=== PATIENT | male | born 1970 | race Caucasian/White ===

== ENCOUNTER 2018-01-21 22:47 | Inpatient (IN) ==
[2018-01-22] MEDS ORDERED: D5% in 0.45% NACL 1,000 ML IVC PRN (01:34)
[2018-01-22] MEDS ORDERED: *HR* Dextrose 50 % in Water (Syg) 50 ML SYRINGE IVP PRN (01:34)
[2018-01-22] MEDS ORDERED: Insulin Human Regular 100 UNIT in 0.9 % Sodium Chloride 100 ML IVC SCH (01:45)
[2018-01-22] MEDS ORDERED: 0.9 % Sodium Chloride w KCl 20 MEQ/1,000 ML MLS IVC PRN (01:45)
[2018-01-22] MEDS ORDERED: 0.45 % Sodium Chloride w/KCl 20 MEQ/1,000 ML MLS IVC PRN (01:45)
[2018-01-22] MEDS ORDERED: 0.9 % Sodium Chloride 1,000 ML IVC PRN (01:45)
[2018-01-22] MEDS: 0.9 % Sodium Chloride 1,000 ML IVC SCH ×2 (02:03→02:52)
[2018-01-22 02:37] LABS: Magnesium 2.3 mg/dL (1.6-2.6); Phosphorous 3.6 mg/dL (2.7-4.5)
--- NOTE | 2018-01-22 02:37 | Internal Med History&Physical ---
Date of Encounter: 01/22/18 Time of Encounter: 02:37 Internal Medicine - H&P: HPI Chief complaint: DKA Admitted From: Hospital to Hospital Transfer Plans for Post Hospital Care: Home History of present illness: Mr. Johnson is a 47 year old male with past medical history of type I diabetes, hypertension. Patient arrived to [facility] emergency department earlier today with chief complaint of nausea that started around 7 o'clock this morning. He states that during this period, his sugars were running 300s-400s. He reports 4 episodes of diarrhea and vomited once in the early afternoon. He also admits to weakness, palpitations, shortness of breath, dry mouth. He denies any recent sick contacts. He denies cough, burning with urination, dizziness, fever, chills, chest pain. He does report intermittent shortness of breath. He denies any recent surgeries or procedures, and he reports that he has not missed any doses of his insulin. He denies any cold symptoms. Upon arrival to [facility] emergency department, vitals were as follows: temperature 97.5, heart rate 116, respirations 22, blood pressure 104/57, oxygen saturation 97% on room air. CBC at [facility] was unremarkable. Arterial blood gas showed pH of 7.11, CO2 14, O2 147, HCO3 5. BMP showed sodium 131, potassium 5.1, chloride 93, HCO3 7, creatinine 1.73 (baseline Creatinine normal). Blood glucose was 350, and at one point was in the 400s. Lactic acid was 1.3, magnesium 2.2, initial troponin was negative. beta hydroxybutyric acid >2. Patient had anionic gap of 31 Patient received 2 L bolus at [facility] ED and was initiated on insulin drip. Past Med Surg Social Fam HX - Past Medical History Medical history: diabetes, hyperlipidemia, hypertension Additional medical history: Bilateral carpal tunnel. Psychiatric history: no psych history - Past Surgical History Surgical History: appendectomy Additional surgical history: Abd surgery. Lt eye surgery for retinal detachment. - Social History Smoking Status: Never smoker Smokeless Tobacco Status: No Alcohol use: occasionally Drug use: none Internal Medicine - H&P: Meds Gabapentin [Neurontin] 300 mg PO BID 10/15/15 [History] Insulin ASPART [NovoLOG] 1 unit SQ ACHS PRN MDD per sliding scale 10/15/15 [History] Lisinopril-HCTZ 20-12.5 [Prinzide 20-12.5] 1 tab PO BID 10/15/15 [History] Atorvastatin Calcium [Lipitor] 20 mg PO DAILY 10/16/15 [History] Insulin Glargine,Hum.rec.anlog [Basaglar Jayneikpen U-100] 34 unit SQ HS 01/21/18 [History] Allergy/AdvReac Type Severity Reaction Status Date / Time Penicillins [PCN] Allergy Anaphylaxis Verified 11/06/15 02:15 All Systems PM: A 10-system review of systems was performed and is negative for pertinent findings except as documented above in the HPI. - Constitutional Constitutional: as per HPI - EENT Eyes: as per HPI Ears: as per HPI Nose, mouth and throat: as per HPI - Breasts Breasts: as per HPI - Cardiovascular Cardiovascular ROS IM: as per HPI - Respiratory Respiratory: as per HPI - Gastrointestinal Gastrointestinal: as per HPI - Genitourinary Genitourinary ROS male: as per HPI - Musculoskeletal Musculoskeletal ROS IM: as per HPI - Integumentary Integumentary IM: as per HPI - Neurological Neurological ROS: as per HPI - Psychiatric Psychiatric: as per HPI - Endocrine Endocrine IM: as per HPI - Hematologic/Lymphatic Hematologic/Lymphatic: as per HPI - Allergic/Immunologic Allergic/Immunologic: as per HPI - Constitutional Vitals: Temp Pulse Resp BP Pulse Ox 98.6 F 136 18 143/76 100 01/22/18 01:17 01/22/18 01:17 01/22/18 01:17 01/22/18 01:17 01/22/18 01:17 General appearance: Present: A&O X 3, pleasant, no acute distress, answers questions appropriately Exam: alert and oriented x3, pleasant, no acute distress. - Head Head exam: Present: atraumatic, normocephalic - ENT ENT exam: Present: mucous membranes dry, mucous membranes moist - Respiratory Respiratory exam: Present: rhonchi (Predominantly present on the right side). Absent: respiratory distress, wheezes, tachypnea - Cardiovascular Cardiovascular exam: Present: +S1, +S2, tachycardia - GI/Abdominal GI/Abdominal exam: Present: distended, normal bowel sounds, soft. Absent: tenderness Additional comments: Abdominal scars present from prior surgery. Ventral abdominal hernia present. - Extremities Exam Extremities exam: Absent: cyanotic, pedal edema - Neurological Exam Neurological exam: Present: alert, oriented X3, no focal deficits - Psychiatric Psychiatric exam: Present: normal affect, normal mood - Skin Skin exam: Present: dry, intact. Absent: mottled, pallor - Assessment and plan (1) DKA (diabetic ketoacidoses) Current Visit: No Status: Acute Assessment and plan: 47-year-old male with history of type I diabetes presents to the [facility] emergency department earlier tonight with chief complaint of nausea, vomiting, diarrhea, lethargy, weakness, palpitations. At [facility] ED, he was noted to be in DKA. Patient denies any recent sick contacts, cough, or any other upper respiratory symptoms. He denies any chest pain or chest tightness. At [facility], he was noted to have blood glucose in the 300s, tachycardia, tachypnea. ABG showed pH 7.11, serum bicarbonate 7. Anion gap: 31. serum positive for ketones. initial troponin at [place] ED negative. 2 view chest x-ray ordered, showing no evidence of focal consolidation. Etiology of DKA unclear, but suspect likely secondary to viral gastroenteritis, as patient did state that he had episodes of nausea and vomiting earlier this evening. Plan: NPO s/p 3L total fluid boluses insulin gtt with maintenance fluids per dka protocol. serum bmp and venous blood gas q4H Qualifiers: Diabetes mellitus type: type 1 Diabetes mellitus complication detail: without coma Qualified Code(s): E10.10 - Type 1 diabetes mellitus with ketoacidosis without coma (2) Dehydration Current Visit: No Status: Acute Assessment and plan: Likely secondary to DKA. Plan as above (3) RIAN (acute kidney injury) Current Visit: Yes Status: Acute Assessment and plan: Likely secondary to dehydration in setting of DKA. Plan: fluid boluses given per DKA protocol as above avoid nephrotoxic agents follow renal protective strategy continue to monitor kidney function (4) DVT prophylaxis Current Visit: Yes Status: Acute Assessment and plan: Heparin SQ - Time Spent With Patient Total time spent is greater than 50% in coordination of care (as documented) at patient's floor/unit and/or counseling patient:
[2018-01-22 02:46] LABS: Estimated Average Glucose 235 mg/dl; Hemoglobin A1C 9.8 %
--- NOTE | 2018-01-22 02:48 | Event Note ---
Date of Encounter: 01/22/18 Time of Encounter: 02:43 Patient was seen and examined. I agree with the H&P as written by the resident physician. Patient with history of insulin-dependent diabetes mellitus, hypertension who was transferred to us from [facility] where he was found to be in DKA with glucose of first to the high 300s to low 400s. Had elevated anion gap with bicarbonates of 7 on the CMP. ABG showed a pH of 7.1 and a bicarbonate of 14. Also noted to be in history of present illness. Was given a couple of liters boluses in the ED there and started on insulin drip prior to transfer here. His been hemodynamically stable. Says his sugars have been running high for the last couple days. He is compliant with his insulin. Does not think that he has been sick recently. GEN: NAD CVS: RRR. S1, S2, No m/r/g RESP: CTAB ABD: Soft, NT, ND, +BS EXT: No edema. 2+ DP. No rashes NEURO: Nonfocal Admitted to 2 N. Initiate DKA insulin and fluids protocol Stat labs now and Q4 hours electrolytes Q1 hour Accu-Cheks NPO for now as he is nauseous somewhat Avoid nephrotoxins Start a diet once bicarbonate is more than 16 and anion gap has closed
[2018-01-22] MEDS: D5% in 0.45% NACL w KCl 20 MEQ/1,000 ML MLS IVC PRN ×3 (02:50→11:41)
[2018-01-22] MEDS ORDERED: OXYCODONE Oral CONC 10 MG/0.5 ML ORAL.SYG SL PRN (03:03)
[2018-01-22] MEDS ORDERED: Naloxone 0.4 MG/ML INJ IVP PRN (03:03)
[2018-01-22] MEDS ORDERED: Ondansetron 4 MG/2 ML VIAL IVP PRN (03:06)
[2018-01-22 03:23] LABS: Calcium 8.5 mg/dL (8.6-10.3); Potassium 4.6 mEq/L (3.5-5.1)
[2018-01-22 03:29] LABS: Basophils % 0.3 %; Hematocrit 43.4 % (37.5-50.1); Hemoglobin 14.4 g/dL (12.9-16.9); Immature Granulocytes % 0.8 % (0-4); Lymphocytes # 1.1 K/mcL (0.6-4.6); Lymphocytes % 10.4 %; Mean Corpuscular HGB Conc 33.2 g/dL (31.6-35.5); Mean Corpuscular Hemoglobin 31.2 pg (28.0-33.3); Mean Corpuscular Volume 93.9 fL (83.0-100.0); Mean Platelet Volume 9.4 fL (9.4-12.4); Monocytes # 0.7 K/mcL (0.0-1.3); Monocytes % 6.2 %; Platelet Count 324 K/mcL (140-400); Red Blood Count 4.62 M/mcL (4.19-5.50); Red Cell Distribution Width 11.9 % (11.5-14.5); Segmented Neutrophils % 82.3 %
[2018-01-22 03:43] LABS: VBG HCO3 9 mEq/L (21-27); VBG PCO2 27 mmHg (41-51); VBG PH 7.12 pH Units (7.32-7.42); VBG PO2 47 mmHg (25-50)
[2018-01-22 03:53] LABS: Troponin I < 0.03 ng/mL (< 0.04)
[2018-01-22] MEDS: Insulin Human Regular 100 UNIT in 0.9 % Sodium Chloride 100 ML IVC SCH ×2 (04:02→10:12)
[2018-01-22 04:24] LABS: BUN/Creatinine Ratio 12 (6-26); Blood Urea Nitrogen 17 mg/dL (6-20); Calcium 8.4 mg/dL (8.6-10.3); Carbon Dioxide 7 mEq/L (23-29); Chloride 106 mEq/L (98-107); Glucose 186 mg/dL (70-105); Osmolality,Calculated 292 (280-300); Potassium 4.3 mEq/L (3.5-5.1); Sodium 138 mEq/L (136-145); eGFR For Non-African Americans 53 (> 60)
[2018-01-22] MEDS: *HR* Heparin 5,000 UNIT/ML VIAL SQ SCH ×3 (05:29→19:48)
[2018-01-22 06:51] LABS: VBG HCO3 11 mEq/L (21-27); VBG PCO2 27 mmHg (41-51); VBG PH 7.23 pH Units (7.32-7.42); VBG PO2 185 mmHg (25-50)
[2018-01-22 06:57] LABS: BUN/Creatinine Ratio 13 (6-26); Blood Urea Nitrogen 16 mg/dL (6-20); Calcium 8.3 mg/dL (8.6-10.3); Carbon Dioxide 11 mEq/L (23-29); Chloride 110 mEq/L (98-107); Glucose 174 mg/dL (70-105); Osmolality,Calculated 291 (280-300); Potassium 3.6 mEq/L (3.5-5.1); Sodium 138 mEq/L (136-145); eGFR For Non-African Americans > 60 (> 60)
[2018-01-22] MEDS: Gabapentin 300 MG CAPSULE PO SCH ×2 (09:08→19:48)
[2018-01-22 10:31] LABS: VBG HCO3 18 mEq/L (21-27); VBG PCO2 39 mmHg (41-51); VBG PH 7.27 pH Units (7.32-7.42); VBG PO2 73 mmHg (25-50)
[2018-01-22 10:43] LABS: BUN/Creatinine Ratio 11 (6-26); Blood Urea Nitrogen 14 mg/dL (6-20); Calcium 8.2 mg/dL (8.6-10.3); Carbon Dioxide 17 mEq/L (23-29); Chloride 109 mEq/L (98-107); Glucose 127 mg/dL (70-105); Osmolality,Calculated 288 (280-300); Potassium 3.6 mEq/L (3.5-5.1); Sodium 138 mEq/L (136-145); eGFR For Non-African Americans > 60 (> 60)
--- NOTE | 2018-01-22 13:35 | Event Note ---
Date of Encounter: 01/22/18 Time of Encounter: 14:00 - AG closed - Will switch patient to subcuaneous insulin with 2 hr overlap with insulin drip - f/u BMP - Start patient on diet.
[2018-01-22] MEDS ORDERED: Dextrose Gel 15 GM/37.5 ML TUBE PO PRN ×2 (13:46)
[2018-01-22] MEDS ORDERED: D5% in Water 1,000 ML IVC PRN (13:46)
[2018-01-22] MEDS ORDERED: Insulin DETEMIR 100 UNIT/ML X5UNITS SQ ONE (13:47)
[2018-01-22 14:33] LABS: BUN/Creatinine Ratio 11 (6-26); Blood Urea Nitrogen 13 mg/dL (6-20); Calcium 8.2 mg/dL (8.6-10.3); Carbon Dioxide 18 mEq/L (23-29); Chloride 110 mEq/L (98-107); Glucose 122 mg/dL (70-105); Osmolality,Calculated 287 (280-300); Potassium 3.5 mEq/L (3.5-5.1); Sodium 138 mEq/L (136-145); eGFR For Non-African Americans > 60 (> 60)
[2018-01-22 14:39] LABS: VBG HCO3 19 mEq/L (21-27); VBG PCO2 42 mmHg (41-51); VBG PH 7.27 pH Units (7.32-7.42); VBG PO2 93 mmHg (25-50)
[2018-01-22] MEDS: Insulin LISPRO 300 UNITS/3 ML VIAL SQ SCH (16:33)
[2018-01-22] MEDS ORDERED: Insulin LISPRO 300 UNITS/3 ML VIAL SQ SCH (21:00)
[2018-01-22] MEDS ORDERED: Insulin DETEMIR 100 UNIT/ML X5UNITS SQ SCH (21:00)
[2018-01-23 05:12] LABS: BUN/Creatinine Ratio 10 (6-26); Blood Urea Nitrogen 10 mg/dL (6-20); Calcium 8.8 mg/dL (8.6-10.3); Carbon Dioxide 25 mEq/L (23-29); Chloride 109 mEq/L (98-107); Glucose 79 mg/dL (70-105); Osmolality,Calculated 292 (280-300); Sodium 142 mEq/L (136-145); eGFR For Non-African Americans > 60 (> 60)
[2018-01-23] MEDS: *HR* Heparin 5,000 UNIT/ML VIAL SQ SCH (06:32)
[2018-01-23] MEDS: Insulin LISPRO 300 UNITS/3 ML VIAL SQ SCH ×2 (07:50→11:49)
[2018-01-23] MEDS: Gabapentin 300 MG CAPSULE PO SCH (08:07)
[2018-01-23 11:17] VITALS: BP 144/97
--- NOTE | 2018-01-23 11:53 | Discharge Summary ---
- NOTES TO OUTPATIENT PROVIDER Notes to Outpatient Provider: Patient has to resume home insulin regimen Date of Encounter: 01/23/18 Time of Encounter: 11:51 - Discharge Diagnosis (1) RIAN (acute kidney injury) Priority: Primary Status: Acute (2) DKA (diabetic ketoacidoses) Priority: Primary Status: Acute Qualifiers: Diabetes mellitus type: type 1 Diabetes mellitus complication detail: without coma Qualified Code(s): E10.10 - Type 1 diabetes mellitus with ketoacidosis without coma Hospital course: Mr. Johnson is a 47 year old male with past medical history of diabetes, hypertension who came in with complain of nausea vomiting was found to have DKA with elevated anion gap and bicarbonate of 7. Patient was started on insulin drip with DKA protocol and IV fluids. Patient also had a KI on presentation with creatinine of 1.44. Patient's gap closed with IV insulin were next 1.5 days. Patient was started on subcutaneous insulin and monitor closely. Patient tolerated diet well is asymptomatic and wants to go home. We will discharge patient to home and resume his home medications including insulin. Patient affirms he has insulin at home. Discharge discussed with: patient, family, nurse - Time Spent with Patient Total time spent providing and/or coordinating discharge services: Greater than 30 minutes (39) - Discharge Medications Home Medications: Gabapentin [Neurontin] 300 mg PO BID 10/15/15 [History] Insulin ASPART [NovoLOG] 0 - 15 unit SQ ACHS PRN MDD per sliding scale 10/15/15 [History] Lisinopril-HCTZ 20-12.5 [Prinzide 20-12.5] 1 tab PO DAILY 10/15/15 [History] Atorvastatin Calcium [Lipitor] 20 mg PO DAILY 10/16/15 [History] Insulin Glargine,Hum.rec.anlog [Basaglar Kwikpen U-100] 34 unit SQ HS 01/21/18 [History] Metoprolol Succinate [Toprol Xl] 100 mg PO DAILY 01/22/18 [History] Allergies/Adverse Reactions: Allergy/AdvReac Type Severity Reaction Status Date / Time Penicillins [PCN] Allergy Anaphylaxis Verified 01/22/18 09:29 Date of admission: 01/22/18 06:31 Consults: 01/22/18 01:34 Consult for Pharmacy Education [CONS] Routine Reason for Consult: dKA Call Completed: No Discharging clinician: Shobha Clayton - Constitutional Vitals: Temp Pulse Resp BP Pulse Ox 98.1 F 83 18 144/97 96 01/23/18 11:09 01/23/18 11:09 01/23/18 11:09 01/23/18 11:09 01/23/18 11:09 General appearance: Present: A&O X 3, pleasant, no acute distress, answers questions appropriately Exam: General: In no acute distress. Conversant. Obese. Respiratory exam: CTAB. no accessory muscle use, rales, rhonchi, wheezes Cardiovascular exam: RRR, +S1, +S2. no murmur, gallop, rubs. GI/Abdominal exam: Non-tender, Non-distended, normal bowel sounds, soft, no peritoneal signs. Extremities exam: full ROM, no pedal edema, warm, pulses palpable in b/l lower extremities. no calf tenderness Neurological exam: CN II-XII intact, AO X3, no focal deficits. Skin exam: No skin rash, ulcer, purpura or ecchymosis. - Patient Status Disposition: Home, Self-Care Condition: Fair - Discharge Instructions Follow Up With: Codi Sumner MD [Partnered Physician] - 01/27/18 7:00 pm Geovanny Paz MD [Partnered Physician] - 02/02/18 7:00 am Forms: Inpatient Work/School Release - Diet and Activity Activity: resume usual activities as tolerated
== END 2018-01-23 14:11 | disposition home or self-care (01) | DRG 420 ==
LOC: 2NNU → SUATTDRO 01-22 06:31
PROVIDERS: ADMIT Internal Medicine; ATTEND Internal Medicine

== ENCOUNTER 2020-04-05 21:56 | Inpatient (IN) ==
[2020-04-05] MEDS ORDERED: *HR* Dextrose 50 % in Water (Vial) 50 ML VIAL IVP PRN (23:49)
[2020-04-05] MEDS ORDERED: D5% in 0.45% NACL 1,000 ML IVC PRN (23:49)
[2020-04-05] MEDS ORDERED: Insulin LISPRO 300 UNITS/3 ML VIAL SUBQ PRN (23:49)
[2020-04-05] MEDS ORDERED: Ketorolac 15 MG/ML VIAL IVP PRN (23:56)
[2020-04-05] MEDS ORDERED: Naloxone 0.4 MG/ML INJ IVP PRN (23:56)
[2020-04-06] MEDS: Insulin Human Regular 100 UNIT in 0.9 % Sodium Chloride 100 ML IVC SCH ×6 (00:15→16:06)
[2020-04-06 00:57] LABS: VBG HCO3 4 mEq/L (21-27); VBG PCO2 29 mmHg (41-51); VBG PH 6.79 pH Units (7.32-7.42); VBG PO2 70 mmHg (25-50)
[2020-04-06 01:05] LABS: Calcium 9.2 mg/dL (8.6-10.3); Potassium 5.6 mEq/L (3.5-5.1)
[2020-04-06 02:26] LABS: VBG HCO3 5 mEq/L (21-27); VBG PCO2 27 mmHg (41-51); VBG PH 6.88 pH Units (7.32-7.42); VBG PO2 97 mmHg (25-50)
[2020-04-06] MEDS ORDERED: 0.9 % Sodium Chloride 1,000 ML IV ONE (02:34)
[2020-04-06] MEDS ORDERED: 0.9 % Sodium Chloride 1,000 ML ONE (02:34)
[2020-04-06 02:52] LABS: BUN/Creatinine Ratio 12 (6-26); Blood Urea Nitrogen 19 mg/dL (6-20); Calcium 8.9 mg/dL (8.6-10.3); Carbon Dioxide < 4 mEq/L (23-29); Chloride 105 mEq/L (98-107); Glucose 507 mg/dL (70-105); Osmolality,Calculated 315 (280-300); Potassium 5.5 mEq/L (3.5-5.1); Sodium 140 mEq/L (136-145); eGFR For African Americans 56 (> 60); eGFR For Non-African Americans 46 (> 60)
[2020-04-06] MEDS ORDERED: *HR* Metoprolol 5 MG/5 ML VIAL IVP ONE (02:54)
[2020-04-06 04:35] LABS: VBG HCO3 6 mEq/L (21-27); VBG PCO2 22 mmHg (41-51); VBG PH 7.04 pH Units (7.32-7.42); VBG PO2 101 mmHg (25-50)
[2020-04-06 05:04] LABS: Basophils % 0.4 %; Eosinophils # 0.1 K/mcL (0.0-0.6); Eosinophils % 1.2 %; Hematocrit 45.2 % (37.5-50.1); Hemoglobin 14.2 g/dL (12.9-16.9); Immature Granulocytes % 2.9 % (0-4); Lymphocytes # 0.7 K/mcL (0.6-4.6); Mean Corpuscular HGB Conc 31.4 g/dL (31.6-35.5); Mean Corpuscular Hemoglobin 29.3 pg (28.0-33.3); Mean Corpuscular Volume 93.4 fL (83.0-100.0); Mean Platelet Volume 9.7 fL (9.4-12.4); Monocytes # 0.9 K/mcL (0.0-1.3); Monocytes % 8.5 %; Neutrophils # 8.4 K/mcL (1.6-8.9); Platelet Count 402 K/mcL (140-400); Red Blood Count 4.84 M/mcL (4.19-5.50); Red Cell Distribution Width 12.2 % (11.5-14.5); White Blood Count 10.5 K/mcL (4.3-11.1)
[2020-04-06 05:26] LABS: BUN/Creatinine Ratio 13 (6-26); Blood Urea Nitrogen 19 mg/dL (6-20); Calcium 9.1 mg/dL (8.6-10.3); Carbon Dioxide 5 mEq/L (23-29); Chloride 113 mEq/L (98-107); Glucose 354 mg/dL (70-105); Magnesium 2.2 mg/dL (1.6-2.6); Osmolality,Calculated 314 (280-300); Potassium 3.8 mEq/L (3.5-5.1); Sodium 144 mEq/L (136-145); eGFR For African Americans > 60 (> 60); eGFR For Non-African Americans 53 (> 60)
[2020-04-06 05:39] LABS: Estimated Average Glucose 220 mg/dl; Hemoglobin A1C 9.3 %
[2020-04-06] MEDS ORDERED: D5% in 0.45% NACL 1,000 ML IVC PRN (05:49)
[2020-04-06] MEDS: D5% in 0.45% NACL w KCl 20 MEQ/1,000 ML MLS IVC PRN ×3 (06:07→14:36)
[2020-04-06] MEDS ORDERED: *HR* Metoprolol 5 MG/5 ML VIAL IVP PRN (06:08)
[2020-04-06 06:38] LABS: VBG HCO3 11 mEq/L (21-27); VBG PCO2 26 mmHg (41-51); VBG PH 7.24 pH Units (7.32-7.42); VBG PO2 97 mmHg (25-50)
[2020-04-06 06:57] LABS: BUN/Creatinine Ratio 14 (6-26); Blood Urea Nitrogen 18 mg/dL (6-20); Carbon Dioxide 10 mEq/L (23-29); Chloride 117 mEq/L (98-107); Glucose 236 mg/dL (70-105); Osmolality,Calculated 312 (280-300); Phosphorous < 1.0 mg/dL (2.7-4.5); Potassium 3.3 mEq/L (3.5-5.1); Sodium 146 mEq/L (136-145); eGFR For African Americans > 60 (> 60); eGFR For Non-African Americans 58 (> 60)
[2020-04-06] MEDS: *HR* Heparin 5,000 UNIT/ML VIAL SQ SCH ×3 (07:26→21:29)
[2020-04-06] MEDS ORDERED: Insulin Human Regular 250 UNIT in 0.9 % Sodium Chloride 250 ML IVC SCH (08:00)
[2020-04-06 08:10] LABS: Adenovirus Not Detected (Not Detect); Bordetella Pertussis Not Detected (Not Detect); Chlamydophila pneumoniae Not Detected (Not Detect); Coronavirus 229E Not Detected (Not Detect); Coronavirus HKU1 Not Detected (Not Detect); Coronavirus NL63 Not Detected (Not Detect); Coronavirus OC43 Not Detected (Not Detect); Human Metapneumovirus Not Detected (Not Detect); Human Rhinovirus/Enterovirus Not Detected (Not Detect); Influenza A Subtype 2009 H1 Not Detected (Not Detect); Influenza B Not Detected (Not Detect); Mycoplasma pneumoniae Not Detected (Not Detect); Parainfluenza Virus 1 Not Detected (Not Detect); Parainfluenza Virus 2 Not Detected (Not Detect); Parainfluenza Virus 3 Not Detected (Not Detect); Parainfluenza Virus 4 Not Detected (Not Detect); Respiratory Syncytial Virus Not Detected (Not Detect)
[2020-04-06 08:12] LABS: SARS-CoV-2 DETECTED (Not Detect)
[2020-04-06 08:44] LABS: VBG HCO3 14 mEq/L (21-27); VBG PCO2 27 mmHg (41-51); VBG PH 7.31 pH Units (7.32-7.42); VBG PO2 228 mmHg (25-50)
[2020-04-06 08:58] LABS: BUN/Creatinine Ratio 14 (6-26); Blood Urea Nitrogen 17 mg/dL (6-20); Carbon Dioxide 13 mEq/L (23-29); Chloride 119 mEq/L (98-107); Glucose 204 mg/dL (70-105); Magnesium 2.2 mg/dL (1.6-2.6); Osmolality,Calculated 307 (280-300); Potassium 3.3 mEq/L (3.5-5.1); Sodium 145 mEq/L (136-145); eGFR For African Americans > 60 (> 60); eGFR For Non-African Americans > 60 (> 60)
[2020-04-06] MEDS ORDERED: D5% in 0.45% NACL w KCl 20 MEQ/1,000 ML MLS IVC PRN (10:26)
[2020-04-06 10:37] LABS: VBG HCO3 16 mEq/L (21-27); VBG PCO2 31 mmHg (41-51); VBG PH 7.32 pH Units (7.32-7.42); VBG PO2 191 mmHg (25-50)
[2020-04-06 10:48] LABS: BUN/Creatinine Ratio 16 (6-26); Blood Urea Nitrogen 17 mg/dL (6-20); Calcium 8.9 mg/dL (8.6-10.3); Carbon Dioxide 13 mEq/L (23-29); Chloride 118 mEq/L (98-107); Glucose 240 mg/dL (70-105); Magnesium 2.2 mg/dL (1.6-2.6); Osmolality,Calculated 309 (280-300); Potassium 3.7 mEq/L (3.5-5.1); Sodium 145 mEq/L (136-145); eGFR For African Americans > 60 (> 60); eGFR For Non-African Americans > 60 (> 60)
[2020-04-06] MEDS ORDERED: Potassium Phosphate 44 MEQ in 0.9 % Sodium Chloride 250 ML IVPB ONE ×2 (10:56→18:32)
[2020-04-06 13:25] LABS: VBG HCO3 19 mEq/L (21-27); VBG PCO2 33 mmHg (41-51); VBG PH 7.35 pH Units (7.32-7.42); VBG PO2 187 mmHg (25-50)
[2020-04-06 13:44] LABS: BUN/Creatinine Ratio 16 (6-26); Blood Urea Nitrogen 16 mg/dL (6-20); Carbon Dioxide 17 mEq/L (23-29); Chloride 121 mEq/L (98-107); Glucose 209 mg/dL (70-105); Magnesium 2.1 mg/dL (1.6-2.6); Osmolality,Calculated 309 (280-300); Potassium 3.4 mEq/L (3.5-5.1); Sodium 146 mEq/L (136-145); eGFR For African Americans > 60 (> 60); eGFR For Non-African Americans > 60 (> 60)
[2020-04-06 16:05] LABS: VBG HCO3 19 mEq/L (21-27); VBG PCO2 33 mmHg (41-51); VBG PH 7.37 pH Units (7.32-7.42); VBG PO2 219 mmHg (25-50)
[2020-04-06] MEDS: 0.45 % Sodium Chloride w/KCl 20 MEQ/1,000 ML MLS IVC SCH (16:07)
[2020-04-06 16:23] LABS: BUN/Creatinine Ratio 16 (6-26); Blood Urea Nitrogen 15 mg/dL (6-20); Carbon Dioxide 18 mEq/L (23-29); Chloride 123 mEq/L (98-107); Glucose 139 mg/dL (70-105); Magnesium 2.1 mg/dL (1.6-2.6); Osmolality,Calculated 309 (280-300); Potassium 3.2 mEq/L (3.5-5.1); Sodium 148 mEq/L (136-145); eGFR For African Americans > 60 (> 60); eGFR For Non-African Americans > 60 (> 60)
[2020-04-06] MEDS ORDERED: *HR* Dextrose 50 % in Water (Vial) 50 ML VIAL IVP PRN (16:46)
[2020-04-06] MEDS ORDERED: D5% in Water 1,000 ML IVC PRN (16:46)
[2020-04-06] MEDS ORDERED: Dextrose Gel 15 GM/37.5 ML TUBE PO PRN ×2 (16:46)
[2020-04-06] MEDS: Insulin DETEMIR 100 UNIT/ML X5UNITS SUBQ SCH (17:24)
[2020-04-06] MEDS: Ringers Solution, Lactated 1,000 ML IVC SCH (17:27)
[2020-04-06 18:00] LABS: VBG HCO3 20 mEq/L (21-27); VBG PCO2 36 mmHg (41-51); VBG PH 7.35 pH Units (7.32-7.42); VBG PO2 73 mmHg (25-50)
[2020-04-06 18:20] LABS: BUN/Creatinine Ratio 17 (6-26); Blood Urea Nitrogen 15 mg/dL (6-20); Calcium 8.9 mg/dL (8.6-10.3); Carbon Dioxide 18 mEq/L (23-29); Chloride 123 mEq/L (98-107); Glucose 108 mg/dL (70-105); Osmolality,Calculated 307 (280-300); Potassium 3.4 mEq/L (3.5-5.1); Sodium 148 mEq/L (136-145); eGFR For African Americans > 60 (> 60); eGFR For Non-African Americans > 60 (> 60)
[2020-04-06 19:26] LABS: Estimated Average Glucose 226 mg/dl; Hemoglobin A1C 9.5 %
[2020-04-06 19:46] LABS: VBG HCO3 19 mEq/L (21-27); VBG PCO2 34 mmHg (41-51); VBG PH 7.35 pH Units (7.32-7.42); VBG PO2 229 mmHg (25-50)
[2020-04-06 20:06] LABS: BUN/Creatinine Ratio 18 (6-26); Blood Urea Nitrogen 15 mg/dL (6-20); Carbon Dioxide 17 mEq/L (23-29); Chloride 122 mEq/L (98-107); Glucose 108 mg/dL (70-105); Magnesium 2.1 mg/dL (1.6-2.6); Osmolality,Calculated 309 (280-300); Potassium 3.6 mEq/L (3.5-5.1); Sodium 149 mEq/L (136-145); eGFR For African Americans > 60 (> 60); eGFR For Non-African Americans > 60 (> 60)
[2020-04-06 21:10] LABS: VBG HCO3 18 mEq/L (21-27); VBG PCO2 32 mmHg (41-51); VBG PH 7.35 pH Units (7.32-7.42); VBG PO2 205 mmHg (25-50)
[2020-04-06] MEDS: Insulin LISPRO 300 UNITS/3 ML VIAL SUBQ SCH (21:21)
[2020-04-06 21:27] LABS: BUN/Creatinine Ratio 16 (6-26); Blood Urea Nitrogen 15 mg/dL (6-20); Calcium 8.9 mg/dL (8.6-10.3); Carbon Dioxide 16 mEq/L (23-29); Chloride 121 mEq/L (98-107); Glucose 163 mg/dL (70-105); Magnesium 1.9 mg/dL (1.6-2.6); Osmolality,Calculated 312 (280-300); Potassium 3.7 mEq/L (3.5-5.1); Sodium 149 mEq/L (136-145); eGFR For African Americans > 60 (> 60); eGFR For Non-African Americans > 60 (> 60)
[2020-04-06 23:05] LABS: VBG HCO3 18 mEq/L (21-27); VBG PCO2 33 mmHg (41-51); VBG PH 7.34 pH Units (7.32-7.42); VBG PO2 228 mmHg (25-50)
[2020-04-07] MEDS: Ringers Solution, Lactated 1,000 ML IVC SCH ×4 (01:02→20:01)
[2020-04-07 02:33] LABS: BUN/Creatinine Ratio 16 (6-26); Blood Urea Nitrogen 16 mg/dL (6-20); Calcium 8.8 mg/dL (8.6-10.3); Carbon Dioxide 15 mEq/L (23-29); Chloride 120 mEq/L (98-107); Glucose 231 mg/dL (70-105); Magnesium 2.1 mg/dL (1.6-2.6); Osmolality,Calculated 315 (280-300); Potassium 3.9 mEq/L (3.5-5.1); Sodium 148 mEq/L (136-145); eGFR For African Americans > 60 (> 60); eGFR For Non-African Americans > 60 (> 60)
[2020-04-07 05:03] LABS: VBG Ionized Calcium 1.18 mmol/L (1.15-1.35)
[2020-04-07 05:22] LABS: Alanine Aminotransferase 6 Units/L (7-52); Albumin 3.2 g/dL (3.5-5.7); Albumin/Globulin Ratio 1.1 (1.1-2.2); Alkaline Phosphatase 81 Units/L (34-104); Aspartate Amino Transferase 11 Units/L (13-39); BUN/Creatinine Ratio 15 (6-26); Bilirubin,Total 0.3 mg/dL (0.3-1.0); Blood Urea Nitrogen 15 mg/dL (6-20); Calcium 8.8 mg/dL (8.6-10.3); Carbon Dioxide 16 mEq/L (23-29); Chloride 114 mEq/L (98-107); Glucose 313 mg/dL (70-105); Osmolality,Calculated 311 (280-300); Phosphorous 2.5 mg/dL (2.7-4.5); Potassium 3.6 mEq/L (3.5-5.1); Sodium 144 mEq/L (136-145); Total Protein 6.2 g/dL (6.4-8.9); eGFR For African Americans > 60 (> 60); eGFR For Non-African Americans > 60 (> 60)
[2020-04-07] MEDS: *HR* Heparin 5,000 UNIT/ML VIAL SQ SCH ×3 (05:45→20:01)
[2020-04-07] MEDS: Insulin LISPRO 300 UNITS/3 ML VIAL SUBQ SCH ×6 (05:45→20:00)
[2020-04-07 06:12] LABS: Basophils % 0.1 %; Hematocrit 36.3 % (37.5-50.1); Immature Granulocytes % 0.5 % (0-4); Lymphocytes # 1.5 K/mcL (0.6-4.6); Lymphocytes % 16.8 %; Mean Corpuscular HGB Conc 34.2 g/dL (31.6-35.5); Mean Corpuscular Hemoglobin 29.5 pg (28.0-33.3); Mean Corpuscular Volume 86.4 fL (83.0-100.0); Mean Platelet Volume 9.3 fL (9.4-12.4); Monocytes # 0.6 K/mcL (0.0-1.3); Monocytes % 7.2 %; Neutrophils # 6.6 K/mcL (1.6-8.9); Platelet Count 348 K/mcL (140-400); Red Cell Distribution Width 12.8 % (11.5-14.5); Segmented Neutrophils % 75.4 %; White Blood Count 8.7 K/mcL (4.3-11.1)
[2020-04-07 06:15] LABS: Hemoglobin 12.4 g/dL (12.9-16.9)
[2020-04-07] MEDS: Insulin DETEMIR 100 UNIT/ML X5UNITS SUBQ SCH ×2 (08:16→23:43)
[2020-04-07] MEDS: 0.45 % Sodium Chloride w/KCl 20 MEQ/1,000 ML MLS IVC SCH ×2 (19:22→19:23)
[2020-04-08 02:47] LABS: Basophils % 0.4 %; Eosinophils % 0.2 %; Hematocrit 34.3 % (37.5-50.1); Hemoglobin 11.9 g/dL (12.9-16.9); Immature Granulocytes % 0.4 % (0-4); Lymphocytes # 1.8 K/mcL (0.6-4.6); Lymphocytes % 37.3 %; Mean Corpuscular HGB Conc 34.7 g/dL (31.6-35.5); Mean Corpuscular Hemoglobin 29.8 pg (28.0-33.3); Mean Corpuscular Volume 85.8 fL (83.0-100.0); Mean Platelet Volume 9.4 fL (9.4-12.4); Monocytes # 0.4 K/mcL (0.0-1.3); Monocytes % 8.1 %; Neutrophils # 2.5 K/mcL (1.6-8.9); Platelet Count 304 K/mcL (140-400); Red Cell Distribution Width 12.4 % (11.5-14.5); Segmented Neutrophils % 53.6 %; White Blood Count 4.7 K/mcL (4.3-11.1)
[2020-04-08 02:58] LABS: BUN/Creatinine Ratio 14 (6-26); Blood Urea Nitrogen 10 mg/dL (6-20); Calcium 8.3 mg/dL (8.6-10.3); Carbon Dioxide 25 mEq/L (23-29); Chloride 108 mEq/L (98-107); Glucose 251 mg/dL (70-105); Osmolality,Calculated 298 (280-300); Phosphorous 2.9 mg/dL (2.7-4.5); Potassium 2.9 mEq/L (3.5-5.1); Sodium 140 mEq/L (136-145); eGFR For African Americans > 60 (> 60); eGFR For Non-African Americans > 60 (> 60)
[2020-04-08] MEDS: *HR* Heparin 5,000 UNIT/ML VIAL SQ SCH ×2 (05:28→13:37)
[2020-04-08] MEDS: Ringers Solution, Lactated 1,000 ML IVC SCH (08:41)
[2020-04-08] MEDS: Insulin LISPRO 300 UNITS/3 ML VIAL SUBQ SCH ×4 (08:55→17:22)
[2020-04-08] MEDS: Insulin DETEMIR 100 UNIT/ML X5UNITS SUBQ SCH (09:00)
[2020-04-08] MEDS ORDERED: amLODIPine 5 MG TABLET PO SCH (10:45)
[2020-04-08 11:55] VITALS: BP 155/100
[2020-04-08] MEDS ORDERED: Azithromycin 250 MG TABLET PO ONE (14:41)
[2020-04-08] MEDS ORDERED: Azithromycin 250 MG TABLET PO SCH (14:45)
[2020-04-08] MEDS ORDERED: Gabapentin 300 MG CAPSULE PO SCH (21:00)
[2020-04-08] MEDS ORDERED: Lactobacillus 1 EACH CAP.SPRINK PO SCH (21:00)
[2020-04-08] MEDS ORDERED: Insulin DETEMIR 100 UNIT/ML X5UNITS SUBQ SCH (21:00)
[2020-04-08] MEDS ORDERED: Lisinopril-HCTZ 20-12.5mg TABLET PO SCH (21:00)
[2020-04-09] MEDS ORDERED: Metoprolol XL (24 HR) Succ 50 MG TAB.ER.24H PO SCH (09:00)
[2020-04-09] MEDS ORDERED: amLODIPine 5 MG TABLET PO SCH (09:00)
== END 2020-04-08 17:56 | disposition home or self-care (01) | DRG 420 ==
LOC: 2NNU
PROVIDERS: ADMIT Internal Medicine; ATTEND Internal Medicine

== ENCOUNTER 2021-03-06 10:14 | Inpatient (IN) ==
[2021-03-06] MEDS ORDERED: Ondansetron 4 MG/2 ML VIAL IVP ONE (11:09)
[2021-03-06] MEDS ORDERED: 0.9 % Sodium Chloride 1,000 ML IVC ONE (11:09)
[2021-03-06 11:44] LABS: VBG HCO3 28 mEq/L (21-27); VBG PCO2 45 mmHg (41-51); VBG PH 7.41 pH Units (7.32-7.42); VBG PO2 47 mmHg (25-50)
[2021-03-06 11:44] LABS: Hematocrit 38.4 % (37.5-50.1); Hemoglobin 12.4 g/dL (12.9-16.9); Immature Granulocytes % 0.2 % (0-4); Lymphocytes # 0.6 K/mcL (0.6-4.6); Lymphocytes % 13.5 %; Mean Corpuscular HGB Conc 32.3 g/dL (31.6-35.5); Mean Corpuscular Hemoglobin 27.3 pg (28.0-33.3); Mean Corpuscular Volume 84.4 fL (83.0-100.0); Mean Platelet Volume 9.2 fL (9.4-12.4); Monocytes # 0.4 K/mcL (0.0-1.3); Monocytes % 9.4 %; Neutrophils # 3.1 K/mcL (1.6-8.9); Platelet Count 307 K/mcL (140-400); Red Blood Count 4.55 M/mcL (4.19-5.50); Red Cell Distribution Width 13.1 % (11.5-14.5); Segmented Neutrophils % 74.9 %; White Blood Count 4.2 K/mcL (4.3-11.1)
[2021-03-06 11:51] LABS: Bilirubin,Urine Negative (Negative); Blood,Urine Negative (Negative); Clarity,Urine Clear (Clear); Color,Urine Colorless (Yellow); Glucose,Urine (UA) 50 mg/dL (Normal); Ketones,Urine Negative (Negative); Leukocyte Esterase,Urine Negative (Negative); Nitrite,Urine Negative (Negative); PH,Urine 6.5 pH Units (5.0-8.0); Protein,Urine 30 mg/dL (Neg-Trace); RBC,Urine 0-3 per hpf (0-3); Specific Gravity,Urine 1.009 (1.010-1.025); Urobilinogen,Urine Normal (Normal)
[2021-03-06 11:55] LABS: INR 1.4; Prothrombin Time 15.7 Seconds (9.4-12.1)
[2021-03-06 11:58] LABS: Activated Partial Thrombo Time 31.6 Seconds (26.0-36.0)
[2021-03-06 12:15] LABS: Alanine Aminotransferase 21 Units/L (7-52); Albumin 3.3 g/dL (3.5-5.7); Albumin/Globulin Ratio 1.1 (1.1-2.2); Alkaline Phosphatase 168 Units/L (34-104); Aspartate Amino Transferase 22 Units/L (13-39); BUN/Creatinine Ratio 8 (6-26); Bilirubin,Total 0.7 mg/dL (0.3-1.0); Blood Urea Nitrogen 7 mg/dL (6-20); Calcium 8.7 mg/dL (8.6-10.3); Carbon Dioxide 29 mEq/L (23-29); Chloride 99 mEq/L (98-107); Glucose 208 mg/dL (70-105); Osmolality,Calculated 286 (280-300); Potassium 3.6 mEq/L (3.5-5.1); Sodium 136 mEq/L (136-145); Total Protein 6.3 g/dL (6.4-8.9); Troponin I 0.26 ng/mL (< 0.04); eGFR For African Americans > 60 (> 60); eGFR For Non-African Americans > 60 (> 60)
[2021-03-06 12:29] LABS: Thyroid Stimulating Hormone 1.327 mcIU/mL (0.340-5.600)
[2021-03-06 12:35] LABS: Influenza A PCR Negative (Negative); Influenza B PCR Negative (Negative); Resp. Syncytial Virus PCR Negative (Negative)
[2021-03-06 12:42] LABS: SARS-CoV-2 by PCR (In House) Negative (Negative)
[2021-03-06] MEDS ORDERED: Furosemide 40 MG/4 ML VIAL IVP ONE (13:04)
[2021-03-06] MEDS ORDERED: Aspirin 81 MG TAB.CHEW PO ONE (13:04)
[2021-03-06] MEDS ORDERED: Dextrose Gel 15 GM/37.5 ML TUBE PO PRN ×2 (14:38)
[2021-03-06] MEDS ORDERED: Acetaminophen 325 MG TABLET PO PRN (14:38)
[2021-03-06] MEDS ORDERED: Naloxone 0.4 MG/ML INJ IVP PRN (14:38)
[2021-03-06] MEDS ORDERED: *HR* Dextrose 50 % in Water (Syg) 50 ML SYRINGE IVP PRN (14:38)
[2021-03-06] MEDS ORDERED: D5% in Water 1,000 ML IVC PRN (14:38)
[2021-03-06] MEDS ORDERED: Ondansetron 4 MG/2 ML VIAL IVP PRN (14:38)
[2021-03-06] MEDS ORDERED: Perflutren Lipid Microsphere 1.3 ML in 0.9 % Sodium Chloride 8.7 ML IVP PRN (14:42)
[2021-03-06] MEDS: *HR* Heparin 5,000 UNIT/ML VIAL SQ SCH (17:31)
[2021-03-06] MEDS: Insulin LISPRO 300 UNITS/3 ML VIAL SUBQ SCH (17:37)
[2021-03-06] MEDS: Gabapentin 300 MG CAPSULE PO SCH (21:51)
[2021-03-06] MEDS: Furosemide 40 MG/4 ML VIAL IVP SCH (21:52)
[2021-03-06] MEDS: Insulin DETEMIR 100 UNIT/ML X5UNITS SUBQ SCH (21:56)
[2021-03-07 02:02] LABS: Basophils % 0.9 %; Eosinophils # 0.1 K/mcL (0.0-0.6); Eosinophils % 3.7 %; Hematocrit 35.8 % (37.5-50.1); Hemoglobin 11.7 g/dL (12.9-16.9); Immature Granulocytes % 0.3 % (0-4); Lymphocytes # 0.9 K/mcL (0.6-4.6); Lymphocytes % 25.5 %; Mean Corpuscular HGB Conc 32.7 g/dL (31.6-35.5); Mean Corpuscular Hemoglobin 27.7 pg (28.0-33.3); Mean Corpuscular Volume 84.8 fL (83.0-100.0); Monocytes # 0.5 K/mcL (0.0-1.3); Monocytes % 12.9 %; Platelet Count 321 K/mcL (140-400); Red Blood Count 4.22 M/mcL (4.19-5.50); Red Cell Distribution Width 13.2 % (11.5-14.5); Segmented Neutrophils % 56.7 %; White Blood Count 3.5 K/mcL (4.3-11.1)
[2021-03-07 02:19] LABS: BUN/Creatinine Ratio 10 (6-26); Blood Urea Nitrogen 9 mg/dL (6-20); Calcium 8.4 mg/dL (8.6-10.3); Carbon Dioxide 31 mEq/L (23-29); Chloride 98 mEq/L (98-107); Chol/HDL Ratio 2.9 (0-4.9); Cholesterol 103 mg/dL (< 200); Glucose 220 mg/dL (70-105); HDL Cholesterol 35 mg/dL (40-59); LDL Cholesterol,Calculated 53 mg/dL (< 100); Magnesium 1.2 mg/dL (1.6-2.6); Osmolality,Calculated 291 (280-300); Potassium 3.1 mEq/L (3.5-5.1); Sodium 138 mEq/L (136-145); Triglycerides 73 mg/dL (< 150); eGFR For African Americans > 60 (> 60); eGFR For Non-African Americans > 60 (> 60)
[2021-03-07 02:55] LABS: Estimated Average Glucose 226 mg/dl; Hemoglobin A1C 9.5 %
[2021-03-07] MEDS: *HR* Heparin 5,000 UNIT/ML VIAL SQ SCH (05:59)
[2021-03-07] MEDS: Insulin LISPRO 300 UNITS/3 ML VIAL SUBQ SCH ×3 (07:05→16:50)
[2021-03-07] MEDS: Aspirin 81 MG TAB.CHEW PO SCH (07:58)
[2021-03-07] MEDS: Gabapentin 300 MG CAPSULE PO SCH ×2 (07:58→20:53)
[2021-03-07] MEDS: Furosemide 40 MG/4 ML VIAL IVP SCH ×2 (07:59→20:55)
[2021-03-07] MEDS ORDERED: Metoprolol XL (24 HR) Succ 50 MG TAB.ER.24H PO SCH (09:00)
[2021-03-07] MEDS ORDERED: Potassium Chloride Elixir 20 MEQ/15 ML UDC PO ONE (11:03)
[2021-03-07] MEDS ORDERED: Furosemide 40 MG/4 ML VIAL IVP ONE (14:21)
[2021-03-07] MEDS ORDERED: *HR* Heparin 5,000 UNIT/ML VIAL IVP ONE (14:56)
[2021-03-07] MEDS ORDERED: *HR* Heparin 5,000 UNIT/ML VIAL IVP PRN ×2 (14:56)
[2021-03-07] MEDS ORDERED: Heparin 25,000 UNIT/250 ML 25,000 UNIT/250 ML IV.SOLN IVC SCH (15:00)
[2021-03-07 16:52] LABS: Hematocrit 40.7 % (37.5-50.1); Hemoglobin 12.8 g/dL (12.9-16.9); Mean Corpuscular HGB Conc 31.4 g/dL (31.6-35.5); Mean Corpuscular Hemoglobin 27.1 pg (28.0-33.3); Platelet Count 343 K/mcL (140-400); Red Blood Count 4.73 M/mcL (4.19-5.50); Red Cell Distribution Width 13.2 % (11.5-14.5); White Blood Count 4.2 K/mcL (4.3-11.1)
[2021-03-07 17:04] LABS: Heparin anti-factor XA UFH < 0.04 IU/mL (0.30-0.70); INR 1.4; Prothrombin Time 15.4 Seconds (9.4-12.1)
[2021-03-07] MEDS: Insulin DETEMIR 100 UNIT/ML X5UNITS SUBQ SCH (20:54)
[2021-03-08 02:03] LABS: BUN/Creatinine Ratio 9 (6-26); Blood Urea Nitrogen 8 mg/dL (6-20); Calcium 8.3 mg/dL (8.6-10.3); Carbon Dioxide 33 mEq/L (23-29); Chloride 95 mEq/L (98-107); Glucose 225 mg/dL (70-105); Magnesium 1.3 mg/dL (1.6-2.6); Osmolality,Calculated 287 (280-300); Sodium 136 mEq/L (136-145); eGFR For African Americans > 60 (> 60); eGFR For Non-African Americans > 60 (> 60)
[2021-03-08 02:13] LABS: Basophils # 0.1 K/mcL (0.0-0.2); Basophils % 1.3 %; Eosinophils # 0.1 K/mcL (0.0-0.6); Eosinophils % 3.1 %; Hematocrit 38.9 % (37.5-50.1); Hemoglobin 12.6 g/dL (12.9-16.9); Immature Granulocytes % 0.3 % (0-4); Lymphocytes % 24.8 %; Mean Corpuscular HGB Conc 32.4 g/dL (31.6-35.5); Mean Corpuscular Hemoglobin 27.6 pg (28.0-33.3); Mean Corpuscular Volume 85.3 fL (83.0-100.0); Mean Platelet Volume 9.2 fL (9.4-12.4); Monocytes # 0.4 K/mcL (0.0-1.3); Monocytes % 10.6 %; Neutrophils # 2.3 K/mcL (1.6-8.9); Platelet Count 342 K/mcL (140-400); Red Blood Count 4.56 M/mcL (4.19-5.50); Red Cell Distribution Width 13.2 % (11.5-14.5); Segmented Neutrophils % 59.9 %; White Blood Count 3.9 K/mcL (4.3-11.1)
[2021-03-08] MEDS ORDERED: Heparin 25,000UNIT/250ML 1/2NS 25,000 UNIT/250 ML IV.SOLN IVC SCH (05:45)
[2021-03-08] MEDS: Insulin LISPRO 300 UNITS/3 ML VIAL SUBQ SCH ×3 (07:50→17:29)
[2021-03-08] MEDS: Metoprolol XL (24 HR) Succ 50 MG TAB.ER.24H PO SCH (08:32)
[2021-03-08] MEDS: Furosemide 40 MG/4 ML VIAL IVP SCH ×2 (08:32→20:05)
[2021-03-08] MEDS: Gabapentin 300 MG CAPSULE PO SCH ×2 (08:32→20:14)
[2021-03-08] MEDS: Aspirin 81 MG TAB.CHEW PO SCH (08:32)
[2021-03-08] MEDS: Potassium Chloride Elixir 20 MEQ/15 ML UDC PO SCH ×2 (10:53→20:00)
[2021-03-08] MEDS ORDERED: Nitroglycerin 1,000 MCG/5 ML VIAL IV ONE (14:48)
[2021-03-08] MEDS ORDERED: ISOVUE-370 200 ML INFUS..BTL ONE (14:48)
[2021-03-08] MEDS ORDERED: *HR* Heparin 10,000 UNIT/10 ML VIAL ONE (14:48)
[2021-03-08] MEDS ORDERED: Heparin 1,000 UNITS/500 mL 500 ML ONE (14:48)
[2021-03-08] MEDS ORDERED: 0.9 % Sodium Chloride 1,000 ML ONE (14:48)
[2021-03-08] MEDS ORDERED: *HR* FentaNYL (PF) 100 MCG/2 ML VIAL ONE (15:48)
[2021-03-08] MEDS ORDERED: *HR* Midazolam HCl 2 MG/2 ML VIAL ONE (15:48)
[2021-03-08] MEDS: *HR* Heparin 5,000 UNIT/ML VIAL SQ SCH (20:09)
[2021-03-08] MEDS: Insulin DETEMIR 100 UNIT/ML X5UNITS SUBQ SCH (20:14)
[2021-03-08] MEDS ORDERED: Sacubitril/Valsartan 24/26 MG 1 TABLET PO SCH (21:00)
[2021-03-09 07:07] VITALS: BP 145/88; PULSE 89; TEMP 97.6; O2SAT 94
[2021-03-09] MEDS: *HR* Heparin 5,000 UNIT/ML VIAL SQ SCH (07:16)
[2021-03-09] MEDS: Gabapentin 300 MG CAPSULE PO SCH (08:19)
[2021-03-09] MEDS: Insulin LISPRO 300 UNITS/3 ML VIAL SUBQ SCH (08:19)
[2021-03-09] MEDS: Aspirin 81 MG TAB.CHEW PO SCH (08:19)
[2021-03-09] MEDS: Metoprolol XL (24 HR) Succ 50 MG TAB.ER.24H PO SCH (08:19)
[2021-03-09] MEDS ORDERED: Furosemide 40 MG TABLET PO SCH (09:00)
[2021-03-09] MEDS ORDERED: Sacubitril/Valsartan 24/26 MG 1 TABLET PO SCH (09:00)
== END 2021-03-09 11:29 | disposition home or self-care (01) | DRG 192 ==
LOC: 3BNU 10:14 → EMEROOARM 10:14 → SUATTDRO 14:13 → 3BNU 14:49
PROVIDERS: ADMIT Internal Medicine; ATTEND Internal Medicine